=== PATIENT | male | born 1980 | race Caucasian/White ===

== ENCOUNTER 2024-06-11 14:24 | Emergency (ER) | payer OTHER, SELFPAY ==
[2024-06-11 14:28] VITALS: BP 140/92; PULSE 96; RESP 18; TEMP 36.8; O2SAT 98
[2024-06-11 14:34] VITALS: O2SAT 99
--- NOTE | 2024-06-11 14:42 | ED.GENADULT ---
HPI - General Adult General Chief complaint: Allergic Reaction Stated complaint: wasp sting Time Seen by Provider: 06/11/24 14:38 History of Present Illness HPI narrative: Patient is a 44-year-old male who presents ER after a wasp sting to the forehead yesterday. Use an EpiPen. For his forehead denies any known swelling today. He took an Eleni. No difficulty breathing or swelling. Related Data Allergies Allergy/AdvReac Type Severity Reaction Status Date / Time No Known Allergies Allergy Verified 06/11/24 14:32 Review of Systems Constitutional: Constitutional: Reports no additional constitutional complaints Respiratory: Respiratory: Reports no additional respiratory complaints Allergic/Immunologic: Allergic/Immunologic: Reports no additional allergic/immunologic complaints PMFSH Past Medical History Medical History (Updated 06/11/24 @ 14:44 by Beny Irwin MD) Healthy adult male Exam Narrative: GENERAL: Well-appearing, well-nourished, and in no acute distress. HEAD: Normocephalic, atraumatic. EYES: PERRL and EOMI. Periorbital edema without cellulitis. ENT: Mucous membranes moist. EXTREMITIES: Normal range of motion. No edema. SKIN: Warm, dry, no rash. NEURO: Alert and oriented x3. PSYCH: Normal mood and affect. Course Course Emergency Course: Discharge with steroids. Recommend Benadryl at home. Will refill EpiPen. Vital Signs Vital signs: Vital Signs Temperature 98.2 F 06/11/24 14:28 Pulse Rate 96 06/11/24 14:28 Respiratory Rate 18 06/11/24 14:28 Blood Pressure 140/92 H 06/11/24 14:28 Pulse Oximetry 98 06/11/24 14:28 Oxygen Delivery Room Air 06/11/24 14:28 Temperature 98.2 F 06/11/24 14:28 Pulse Rate 96 06/11/24 14:28 Respiratory Rate 18 06/11/24 14:28 Blood Pressure 140/92 H 06/11/24 14:28 Pulse Oximetry 99 06/11/24 14:34 Oxygen Delivery Room Air 06/11/24 14:34 Medical Decision Making Vital Signs Vital Signs: Vital Signs Temperature 98.2 F 06/11/24 14:28 Pulse Rate 96 06/11/24 14:28 Respiratory Rate 18 06/11/24 14:28 Blood Pressure 140/92 H 06/11/24 14:28 Pulse Oximetry 98 06/11/24 14:28 Oxygen Delivery Room Air 06/11/24 14:28 Temperature 98.2 F 06/11/24 14:28 Pulse Rate 96 06/11/24 14:28 Respiratory Rate 18 06/11/24 14:28 Blood Pressure 140/92 H 06/11/24 14:28 Pulse Oximetry 99 06/11/24 14:34 Oxygen Delivery Room Air 06/11/24 14:34 Discharge Plan Discharge Clinical Impression: Allergic reaction to wasp sting Patient Disposition: Home, Self-Care Condition: Stable Instructions: Insect Bite or Sting (ED) Additional Instructions: Return the ER if you cannot breathe, you cannot swallow, you lose consciousness, or have additional concerns. Prescriptions: New epinephrine [EpiPen] 0.3 mg/0.3 mL auto-injector 0.3 mg IM ONCE Qty: 2 0RF Rx Instructions: as a single dose; may repeat once prednisone 50 mg tablet 50 mg PO DAILY Qty: 6 0RF Follow-up/Referrals: PHYSICIAN,[facility] [Primary Care Provider] - Jose Power MD [Physician] - 1 Week
[2024-06-11 15:01] VITALS: BP 141/76; PULSE 86; RESP 18; O2SAT 99
== END 2024-06-11 15:02 | disposition home or self-care (01) ==
LOC: ANHED 14:53
PROVIDERS: Emergency Provider Emergency Medicine; PCP Nurse Practitioner
DX: T63.461A Toxic effect of venom of wasps, accidental (unintentional), initial encounter (principal)
CPT/HCPCS: 99283

== ENCOUNTER 2024-12-26 07:14 | Emergency (ER) | payer OTHER, SELFPAY ==
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
--- OUTSIDE RECORDS SUMMARY | 2024-12-26 07:17 | XMS_ITS | Patient Health Record ---
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 Name Role Phone Shane Apodaca Primary Care Provider Alyssa Christiansen Unavailable [phone] Tyrone Hensley Unavailable [phone] Lisha Smith Unavailable [phone] Tyshawn Ryan Unavailable [phone] Lynsey Iverson Unavailable [phone] Carmen Lopez Unavailable [phone] Allergies No Known Allergies Results Component Value Reference Range Notes 12 Panel Urine Drug Screen Reviewed date:05/26/2024 08:35:36 AM Interpretation: Performing Lab: Notes/Report: THC NEG MANISH NEG MOP (OPI) NEG AMP NEG MET NEG BAR NEG BZO NEG MDMA NEG MTD NEG OXY NEG PCP NEG BUP POS 12 Panel Urine Drug Screen Reviewed date:03/28/2024 08:21:47 AM Interpretation: Performing Lab: Notes/Report: THC NEG MANISH NEG MOP (OPI) NEG AMP NEG MET NEG BAR NEG BZO NEG MDMA NEG MTD NEG OXY NEG PCP NEG BUP POS 12 Panel Urine Drug Screen Reviewed date:12/12/2024 08:20:24 AM Interpretation: Performing Lab: Notes/Report: THC neg MANISH neg MOP (OPI) neg AMP neg MET neg BAR neg BZO neg MDMA neg MTD neg OXY neg PCP neg BUP POS 12 Panel Urine Drug Screen Reviewed date:07/25/2024 08:30:54 AM Interpretation: Performing Lab: Notes/Report: THC neg MANISH neg MOP (OPI) neg AMP neg MET neg BAR neg BZO neg MDMA neg MTD neg OXY neg PCP neg BUP POS HIV Screen *HIV 1, 2 Ab, p24 Ag Reviewed date:01/14/2024 12:21:50 PM Interpretation: Performing Lab: Notes/Report: Hemoglobin A1c* Reviewed date:01/14/2024 12:20:23 PM Interpretation: Performing Lab: Notes/Report: CBC With Differential/Platel et* Reviewed date:01/14/2024 12:21:13 PM Interpretation: Performing Lab: Notes/Report: TSH+Free T4* Reviewed date:01/14/2024 12:21:31 PM Interpretation: Performing Lab: Notes/Report: Lipid Panel* Reviewed date:01/14/2024 12:20:03 PM Interpretation: Performing Lab: Notes/Report: CMP 14 Comprehensive Metabol ic Panel* Reviewed date:01/14/2024 12:20:45 PM Interpretation: Performing Lab: Notes/Report: 12 Panel Urine Drug Screen Reviewed date:11/11/2024 08:35:26 AM Interpretation: Performing Lab: Notes/Report: THC neg MANISH neg MOP (OPI) neg AMP neg MET neg BAR neg BZO neg MDMA neg MTD neg OXY neg PCP neg BUP POS 12 Panel Urine Drug Screen Reviewed date:06/24/2024 08:22:50 AM Interpretation: Performing Lab: Notes/Report: THC neg MANISH neg MOP (OPI) neg AMP neg MET neg BAR neg BZO neg MDMA neg MTD neg OXY neg PCP neg BUP POS 12 Panel Urine Drug Screen Reviewed date:04/27/2024 09:26:59 AM Interpretation: Performing Lab: Notes/Report: THC neg MANISH neg MOP (OPI) neg AMP neg MET neg BAR neg BZO neg MDMA neg MTD neg OXY neg PCP neg BUP POS 12 Panel Urine Drug Screen Reviewed date:01/29/2024 08:33:11 AM Interpretation: Performing Lab: Notes/Report: THC neg MANISH neg MOP (OPI) neg AMP neg MET neg BAR neg BZO neg MDMA neg MTD neg OXY neg PCP neg BUP POS Buprenorphine and Metabolite (Urine test) Reviewed date:2024 11:07:24 AM Interpretation:Normal Performing Lab:[facility], [address], [place], Phone - [phone], Director - PhDAbudu Notes/Report: Clinical Information:[id number] LM Buprenorphine Positive Confirmation p erformed by Mass Spectrometry Buprenorphine Positive Buprenorphine Conf, MS, UR 117 Cutoff=10 ng/m L Norbuprenorphine Positive Norbuprenorphine Conf, MS, UR 217 Cutoff=10 n g/mL 12 Panel Urine Drug Screen Reviewed date:01/01/2024 08:30:22 AM Interpretation: Performing Lab: Notes/Report: THC neg MANISH neg MOP (OPI) neg AMP neg MET neg BAR neg BZO neg MDMA neg MTD neg OXY neg PCP neg BUP POS Buprenorphine and Metabolite (Urine test) Reviewed date:10/24/2024 08:23:51 AM Interpretation: Performing Lab:[facility], [address], [facility], Phone - [phone], Director - PhDAbudu Notes/Report: Clinical Information:[id number] LM Buprenorphine Positive Confirmation p erformed by Mass Spectrometry Buprenorphine Positive Buprenorphine Conf, MS, UR 176 Cutoff=10 ng/m L Norbuprenorphine Positive Norbuprenorphine Conf, MS, UR 410 Cutoff=10 n g/mL 12 Panel Urine Drug Screen Reviewed date:10/17/2024 08:40:58 AM Interpretation: Performing Lab: Notes/Report: THC neg MANISH neg MOP (OPI) neg AMP neg MET neg BAR neg BZO neg MDMA neg MTD neg OXY neg PCP neg BUP POS 12 Panel Urine Drug Screen Reviewed date:08/23/2024 08:47:21 AM Interpretation: Performing Lab: Notes/Report: THC neg MANISH neg MOP (OPI) neg AMP neg MET neg BAR neg BZO neg MDMA neg MTD neg OXY neg PCP neg BUP POS 12 Panel Urine Drug Screen Reviewed date:02/29/2024 08:25:53 AM Interpretation: Performing Lab: Notes/Report: THC neg MANISH neg MOP (OPI) neg AMP neg MET neg BAR neg BZO neg MDMA neg MTD neg OXY neg PCP neg BUP POS Occult Blood, Fecal, IA Reviewed date:02/15/2024 01:15:28 PM Interpretation:Negative Performing Lab:[facility], [address] [facility], Phone - [phone], Director - Neeta Notes/Report: Occult Blood, Fecal, IA Negative Negative Please note The date and/or time of collection was not indicated on the requisition as required by state and federal law. The date of receipt of the specimen was used as the collection date if not supplied. 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 Fax confirmation pending., Lynsey Diaz RN 10/21/2024 02:07:36 PM >fax was successfully sent. Message sent to notify pt of referral and letter mailed., Lynsey Diaz RN 11/10/2024 02:18:41 PM >received message from [facility] that they left messages with Hellen on 10/24 and on 11/03 to schedule an appointment with no response., Lynsey Diaz RN 11/10/2024 02:20:25 PM > Text message sent asking pt to contact our office regarding an outstanding referral., Lynsey Diaz RN 11/16/2024 09:49:34 AM >Letter mailed asking pt to call regarding this referral. Clinical Notes [facility], [address], [place] [address], Referral Priority Routine Medications Medication SIG (Take, Route, Frequency, Duration) Notes Start Date End Date Status Citalopram Hydrobromide 40 mg 1 tablet once a day for 90 days Client to rock picker on Thursday when has MAT appt. Active hydrOXYzine HCl 10 MG 1 - 2 tablets as needed for anxiety Orally Twice a day for 90 days Client to rock picker on Thursday when has MAT appt. 11/09/2024 Active Ondansetron HCl 4 mg 1 tablet daily for 30 days As needed for nausea Stopping Strattera due to continued nausea and replacing with viloxazine to see if better tolerated Active buPROPion HCl ER (XL) 150 MG 1 tablet in the morning (please take with 300 mg tablet) Orally Once a day for 90 days Client to rock picker on Thursday when has MAT appt. 06/06/2024 Active buPROPion HCl ER (XL) 300 MG 1 tablet in the morning (please take with 150 mg tablet) Orally Once a day for 90 days Client to rock picker on Thursday when has MAT appt. 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 Social History Tobacco Use: Social History Observation Description Date Details (start date - stop date) Current Smoker NA - NA Sex Assigned At : Social History Observation Description Sex Assigned At Male Alcohol Screen (Audit-C) Question Answer Notes Did you have a drink containing alcohol in the p ast year? No PRAPARE Question Answer Notes Date Completed/Updated: 07/25/2024 What is your current housing situation? I have h ousing Are you worried about losing your housing? No What is the highest level of school that you have finished? 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 Check all that apply I do not have problems meeting my needs Has lack of transportation k ept you from medical appointments, meetings, work or from getting things needed for daily living? No How often do you see or talk to people that you care about and feel close to? (For example: talking to friends on the phone, visiting friends or family, going to [employer]aritan or club meetings) More than 5 times a week How stressed are you? Stress is when someone feels tense, nervous, anxious, or can\t sleep at night because their mind is troubled A little bit In the past year have you sp ent more than 2 nights in a row in a senior living, snf, assisted center, or juvenile correctional facility? No Are you a refugee? No What country are you from? [place] Do you feel physically and e motionally safe where you currently live? Yes In the past year, have you b een afraid of your partner or ex-partner? No PRAPARE Score: 4 Tobacco Control (Standard) Question Answer Notes Tobacco use: Current smoker How often do you smoke cigarettes? Every day How many cigarettes a day do you smoke? 6-10 Problems Problem Type SNOMED Code ICD Code Onset Dates Problem Status W/U Status Risk Notes Problem Tobacco user (233444419) Nicotine dependence, unspecified, uncomplicated (F17.200) Active confirmed Problem Depression (745394223) Depression (F32.9) Active confirmed Problem 92388545 Anxiety (F41.9) Active confirmed Problem Attention deficit hyperactivity disorder (126986975) ADHD (attention deficit hyperactivity disorder) (F90.9) Active confirmed Problem Psychoactive substance dependence (8364744) Chemical dependency (F19.20) Active confirmed Problem 06170277 Neck pain (M54.2) Active confirmed Problem Overweight (385303190) Overweight (BMI 25.0-29.9) (E66.3) Active confirmed Problem 523754351 Chronic hepatitis C without hepatic coma (B18.2) 02/20/20 Active confirmed Problem Tobacco use (382157662) Tobacco use disorder (F17.200) Active confirmed Problem Mental disorder caused by drug (939100777) Opioid use disorder (F11.99) Active confirmed Problem [id number] History of intravenous drug abuse (F19.11) Active confirmed Vital Signs Heart Rate 79 /min 12/12/2024 Temperature 98.3 degrees Fahrenheit 11/11/2024 Respiratory Rate 16 /min 12/12/2024 Blood pressure diastolic 82 mm Hg 12/12/2024 Oximetry 98 % 12/12/2024 Height 69 in 12/12/2024 Blood pressure systolic 122 mm Hg 12/12/2024 Weight 182.2 lbs 12/12/2024 BMI 26.9 kg/m2 12/12/2024 Encounters Encounter Location Date Provider Diagnosis [facility] [place] [address] [place] [address] 01/01/2024 Shane Apodaca Opioid use disorder F11.[address] [place] [address] [address] 01/12/2024 Tyrone Hensley Encounter for screening for malignant neoplasm of colon Z12.11 and Contact with and (suspected) exposure to other communicable diseases Z20.[address] [address] 01/26/2024 Shane Apodaca [facility] [address] [place] [address] [place] [address] 05/10/2024 Tyshawn Ryan [address] [address] 08/23/2024 Tyrone Hensley Encounter for screening for malignant neoplasm of colon Z12.11 and Contact with and (suspected) exposure to other communicable diseases Z20.[address] [address] 10/20/2024 Tyrone Hensley Contact with and (suspected) exposure to other communicable diseases Z20.[address] [address] 11/07/2024 Tyshawn Ryan [address] [address] 01/13/2024 Shane Apodaca Chronic hepatitis C without hepatic coma B18.2 ; Encounter for screening for malignant neoplasm of colon Z12.11 ; Contact with and (suspected) exposure to other communicable diseases Z20.89 ; Screening for metabolic disorder Z13.228 ; Screening for deficiency anemia Z13.0 ; Excessive sweating R61 and Lipid screening Z13.[address] [address] 07/25/2024 Lisha Sanftleben [address] [address] 01/01/2024 Lisha Sanftlen [address] [address] 02/29/2024 Lisha Sanftleben [address] [address] 03/28/2024 [facility] [address] [address] 04/27/[address] [address] 05/26/[address] [place] [address] 06/24/[address] [place] [address] 01/12/2024 Shane Apodaca Excessive sweating R61 ; Screening for deficiency anemia Z13.0 ; Screening for metabolic disorder Z13.228 ; Lipid screening Z13.220 ; History of hepatitis C Z86.19 ; Chronic hepatitis C without hepatic coma B18.2 ; Overweight (BMI 25.0-29.9) E66.3 ; Nutritional counseling Z71.3 and Tobacco use disorder F17.[address] [address] 10/20/2024 Shane Apodaca Neck pain M54.2 ; Overweight (BMI 25.0-29.9) E66.3 ; Nutritional counseling Z71.3 and Nicotine dependence, unspecified, uncomplicated F17.[address] [address] 11/09/2024 Tyshawn Ryan ADHD (attention deficit hyperactivity disorder) F90.9 ; Anxiety F41.9 and Depression F32.[address] [address] 08/02/2024 Tyshawn Ryan ADHD (attention deficit hyperactivity disorder) F90.9 ; Anxiety F41.9 and Depression F32.[address] [address] 03/08/2024 Tyshawn Ryan ADHD (attention deficit hyperactivity disorder) F90.9 ; Anxiety F41.9 and Depression F32.[address] [facility] [address] 01/11/2024 Tyshawn Ryan ADHD (attention deficit hyperactivity disorder) F90.9 and Anxiety F41.[address] [address] 06/06/2024 Tyshawn Ryan ADHD (attention deficit hyperactivity disorder) F90.9 ; Anxiety F41.9 and Depression F32.[address] [address] 05/10/2024 Tyshawn Ryan Anxiety F41.9 ; ADHD (attention deficit hyperactivity disorder) F90.9 and Depression F32.[address] [address] 05/26/2024 Carmen Szlufik Opioid use disorder F11.99 ; Nicotine dependence, unspecified, uncomplicated F17.200 ; Overweight (BMI 25.0-29.9) E66.3 and Nutritional counseling Z71.[address] [address] 04/27/2024 Carmen Szlufik Opioid use disorder F11.99 ; Nicotine dependence, unspecified, uncomplicated F17.200 ; Overweight (BMI 25.0-29.9) E66.3 and Nutritional counseling Z71.[address] [address] 06/24/2024 Jenia Heavens Opioid use disorder F11.99 ; Overweight (BMI 25.0-29.9) E66.3 and Tobacco use disorder F17.[address] [address] 07/25/2024 Carmen Szlufik Opioid use disorder F11.99 ; Nicotine dependence, unspecified, uncomplicated F17.200 ; Overweight (BMI 25.0-29.9) E66.3 and Nutritional counseling Z71.[address] [address] 01/01/2024 Jenia Heavens Opioid use disorder F11.99 ; Tobacco use disorder F17.200 and Overweight (BMI 25.0-29.9) E66.[address] [address] 03/28/2024 Carmen Szlufik Opioid use disorder F11.99 ; Nicotine dependence, unspecified, uncomplicated F17.200 ; Overweight (BMI 25.0-29.9) E66.3 and Nutritional counseling Z71.[address] [address] 01/29/2024 Shane Apodaca Opioid use disorder F11.99 ; Overweight (BMI 25.0-29.9) E66.3 ; Nutritional counseling Z71.3 and Nicotine dependence, unspecified, uncomplicated F17.[address] [address] 02/29/2024 Lynsey Iverson Opioid use disorder F11.99 and Nicotine dependence, unspecified, uncomplicated F17.[address] [address] 08/23/2024 Jenia Heavens Opioid use disorder F11.99 ; Overweight (BMI 25.0-29.9) E66.3 and Tobacco use disorder F17.[address] [address] 09/16/2024 Jenia Heavens Opioid use disorder F11.99 ; Overweight (BMI 25.0-29.9) E66.3 and Tobacco use disorder F17.[address] [address] 10/17/2024 Carmen Szlufik Opioid use disorder F11.99 ; Nicotine dependence, unspecified, uncomplicated F17.200 ; Overweight (BMI 25.0-29.9) E66.3 and Nutritional counseling Z71.[address] [address] 11/11/2024 Jenia Heavens Opioid use disorder F11.99 ; Overweight (BMI 25.0-29.9) E66.3 and Tobacco use disorder F17.[address] [address] 12/12/2024 Carmen Jessica Opioid use disorder F11.99 and Encounter for immunization Z23 Assessments Encounter Date Diagnosis (ICD Code) Assessment Notes Treatment Notes Treatment Clinical Notes Section Notes 12/12/2024 Encounter for immunization (ICD-10 - Z23) Ordered per standing orders for administering influenza vaccine to adults. 12/12/2024 Opioid use disorder (ICD-10 - F11.99) 11/09/2024 ADHD (attention deficit hyperactivity disorder) (ICD-10 - F90.9) 10/20/2024 Neck pain (ICD-10 - M54.2) 10/20/2024 Overweight (BMI 25.0-29.9) (ICD-10 - E66.3) 10/17/2024 Nicotine dependence, unspecified, uncomplicated (ICD-10 - F17.200) 10/17/2024 Opioid use disorder (ICD-10 - F11.99) 08/23/2024 Encounter for screening for malignant neoplasm of colon (ICD-10 - Z12.11) 08/23/2024 Contact with and (suspected) exposure to other communicable diseases (ICD-10 - Z20.89) 07/25/2024 Nicotine dependence, unspecified, uncomplicated (ICD-10 - F17.200) 07/25/2024 Opioid use disorder (ICD-10 - F11.99) 05/26/2024 Nicotine dependence, unspecified, uncomplicated (ICD-10 - F17.200) 05/26/2024 Opioid use disorder (ICD-10 - F11.99) 03/28/2024 Nicotine dependence, unspecified, uncomplicated (ICD-10 - F17.200) 03/28/2024 Opioid use disorder (ICD-10 - F11.99) 03/08/2024 ADHD (attention deficit hyperactivity disorder) (ICD-10 - F90.9) 01/13/2024 Chronic hepatitis C without hepatic coma (ICD-10 - B18.2) 01/12/2024 Encounter for screening for malignant neoplasm of colon (ICD-10 - Z12.11) 01/12/2024 Contact with and (suspected) exposure to other communicable diseases (ICD-10 - Z20.89) 01/12/2024 Excessive sweating (ICD-10 - R61) Check labs. Consider hyperhidrosis, derm consult. 01/01/2024 Tobacco use disorder (ICD-10 - F17.200) 01/01/2024 Opioid use disorder (ICD-10 - F11.99) 01/12/2024 Screening for deficiency anemia (ICD-10 - Z13.0) 01/01/2024 Opioid use disorder (ICD-10 - F11.99) 09/16/2024 Overweight (BMI 25.0-29.9) (ICD-10 - E66.3) 09/16/2024 Opioid use disorder (ICD-10 - F11.99) 08/23/2024 Overweight (BMI 25.0-29.9) (ICD-10 - E66.3) 08/23/2024 Opioid use disorder (ICD-10 - F11.99) 04/27/2024 Nicotine dependence, unspecified, uncomplicated (ICD-10 - F17.200) 04/27/2024 Opioid use disorder (ICD-10 - F11.99) 06/24/2024 Overweight (BMI 25.0-29.9) (ICD-10 - E66.3) 06/24/2024 Opioid use disorder (ICD-10 - F11.99) 11/11/2024 Overweight (BMI 25.0-29.9) (ICD-10 - E66.3) 11/11/2024 Opioid use disorder (ICD-10 - F11.99) 10/20/2024 Contact with and (suspected) exposure to other communicable diseases (ICD-10 - Z20.89) Patient Educated with: HIV testing Care Instructions.pdf (HIV testing Care Instructions.pdf) 08/02/2024 ADHD (attention deficit hyperactivity disorder) (ICD-10 - F90.9) Client doing well, no treatment plan changes needed. 06/06/2024 ADHD (attention deficit hyperactivity disorder) (ICD-10 - F90.9) Client doing well, did not appreciate noticable change with increase in bupropion and would like to trial higher dose. BP WNL at last clinic visit. Will increase to max dose of 450 mg. 02/29/2024 Opioid use disorder (ICD-10 - F11.99) 01/29/2024 Overweight (BMI 25.0-29.9) (ICD-10 - E66.3) 01/29/2024 Opioid use disorder (ICD-10 - F11.99) 05/10/2024 Anxiety (ICD-10 - F41.9) Client with less side effects on bupropion than Qelbree (no side effects actually), doing well. Requests high dose as feels could be more beneficial at higher dose for his ADHD symptoms. No other treatment plan changes needed. 05/10/2024 ADHD (attention deficit hyperactivity disorder) (ICD-10 - F90.9) Client with less side effects on bupropion than Qelbree (no side effects actually), doing well. Requests high dose as feels could be more beneficial at higher dose for his ADHD symptoms. No other treatment plan changes needed. 01/11/2024 Anxiety (ICD-10 - F41.9) Client agreeable to switch from Strattera to viloxazine to see if helpful for c/o continued nausea on Strattera. No other changes needed as client doing very well on treatment plan. 01/11/2024 ADHD (attention deficit hyperactivity disorder) (ICD-10 - F90.9) Client agreeable to switch from Strattera to viloxazine to see if helpful for c/o continued nausea on Strattera. No other changes needed as client doing very well on treatment plan. 05/10/2024 Depression (ICD-10 - F32.9) Client with less side effects on bupropion than Qelbree (no side effects actually), doing well. Requests high dose as feels could be more beneficial at higher dose for his ADHD symptoms. No other treatment plan changes needed. 06/06/2024 Anxiety (ICD-10 - F41.9) Client doing well, did not appreciate noticable change with increase in bupropion and would like to trial higher dose. BP WNL at last clinic visit. Will increase to max dose of 450 mg. 01/29/2024 Nutritional counseling (ICD-10 - Z71.3) 02/29/2024 Nicotine dependence, unspecified, uncomplicated (ICD-10 - F17.200) 08/02/2024 Anxiety (ICD-10 - F41.9) Client doing well, no treatment plan changes needed. 11/11/2024 Tobacco use disorder (ICD-10 - F17.200) 06/24/2024 Tobacco use disorder (ICD-10 - F17.200) 04/27/2024 Overweight (BMI 25.0-29.9) (ICD-10 - E66.3) 08/23/2024 Tobacco use disorder (ICD-10 - F17.200) 09/16/2024 Tobacco use disorder (ICD-10 - F17.200) 01/01/2024 Overweight (BMI 25.0-29.9) (ICD-10 - E66.3) 01/12/2024 Screening for metabolic disorder (ICD-10 - Z13.228) 01/13/2024 Encounter for screening for malignant neoplasm of colon (ICD-10 - Z12.11) 11/09/2024 Anxiety (ICD-10 - F41.9) 03/08/2024 Anxiety (ICD-10 - F41.9) 03/28/2024 Overweight (BMI 25.0-29.9) (ICD-10 - E66.3) 05/26/2024 Overweight (BMI 25.0-29.9) (ICD-10 - E66.3) 07/25/2024 Overweight (BMI 25.0-29.9) (ICD-10 - E66.3) 10/17/2024 Overweight (BMI 25.0-29.9) (ICD-10 - E66.3) 10/20/2024 Nutritional counseling (ICD-10 - Z71.3) 10/17/2024 Nutritional counseling (ICD-10 - Z71.3) 10/20/2024 Nicotine dependence, unspecified, uncomplicated (ICD-10 - F17.200) 11/09/2024 Depression (ICD-10 - F32.9) 07/25/2024 Nutritional counseling (ICD-10 - Z71.3) 05/26/2024 Nutritional counseling (ICD-10 - Z71.3) 03/28/2024 Nutritional counseling (ICD-10 - Z71.3) 03/08/2024 Depression (ICD-10 - F32.9) 01/13/2024 Contact with and (suspected) exposure to other communicable diseases (ICD-10 - Z20.89) 01/12/2024 Lipid screening (ICD-10 - Z13.220) 04/27/2024 Nutritional counseling (ICD-10 - Z71.3) 08/02/2024 Depression (ICD-10 - F32.9) Client doing well, no treatment plan changes needed. 06/06/2024 Depression (ICD-10 - F32.9) Client doing well, did not appreciate noticable change with increase in bupropion and would like to trial higher dose. BP WNL at last clinic visit. Will increase to max dose of 450 mg. 01/29/2024 Nicotine dependence, unspecified, uncomplicated (ICD-10 - F17.200) 01/12/2024 History of hepatitis C (ICD-10 - Z86.19) 01/13/2024 Screening for metabolic disorder (ICD-10 - Z13.228) 01/13/2024 Screening for deficiency anemia (ICD-10 - Z13.0) 01/12/2024 Chronic hepatitis C without hepatic coma (ICD-10 - B18.2) 01/12/2024 Overweight (BMI 25.0-29.9) (ICD-10 - E66.3) 01/13/2024 Excessive sweating (ICD-10 - R61) 01/13/2024 Lipid screening (ICD-10 - Z13.220) 01/12/2024 Nutritional counseling (ICD-10 - Z71.3) 01/12/2024 Tobacco use disorder (ICD-10 - F17.200) 01/01/2024 Other Client agrees to take medication as prescribed. Discussed medication side effects, adverse effects, risks, benefits, as well as interactions. Encouraged non-use of opioids. Has naloxone. Recommended participation in recovery groups/counseling services. Agrees to contact office with questions or concerns. 01/01/2024 Other Provided case management services to address social determinants of health needs and reduce barriers to health care services. Provided case management services to address social determinants of health needs and reduce barriers to health care services. 01/11/2024 Other Discussed sleep hygiene and caffeine intake [...] number to the 24-hour crisis line at [facility]. Questions addressed. Client verbalized understanding of all information and is agreeable to treatment plan. Client agreeable to switch from Strattera to viloxazine to see if helpful for c/o continued nausea on Strattera. No other changes needed as client doing very well on treatment plan. 01/29/2024 Other Potential side effects of buprenorphine discussed, as well as taking buprenorphine as prescribed. Dangers of using other controlled substances (prescribed or illegal/including benzodiazepines) with buprenorphine discussed. Patient understands taking other narcotics with buprenorphine could lead to respiratory distress and even . Patient understands that ALL treating providers/physici ans should be informed of buprenorphine use as part of a Medication Assisted Treatment program 02/29/2024 Other Patient agrees to take medication as prescribed. Discussed medication side effects, adverse effects, risks, benefits, as well as interactions. Encouraged non-use of opioids. Encouraged participation in recovery groups. Patient may contact office with questions or concerns. Patient is agreeable to above treatment plan and or changes and verbalized understanding. Continue all medication as prescribed. Provided informed consent with understanding of side effects, adverse effects, risks and benefits as well as alternative treatments as previously discussed with the above recommended medication and other aspects of the treatment programs. Discussed off label uses of medication. Agrees to return sooner if symptoms worsen Client verbalized understanding of information and is agreeable to plan of care. Questions addressed. Education given to patient-Kassandra davison that discontinuing buprenorphine increased the risk of overdose upon return to illicit opioid use. Know that the use of alcohol or benzodiazepines with buprenorphine increases the risk of overdose and . Understand the importance of informing providers if they become or plan to become . Tell the provider if they are having a procedure that may require pain medications. Education gave about safe and locked storage of medications to avoid theft or inadvertent use, especially by children. Encouraged locking devices and avoiding storage in parts of the home frequented by visitors. 02/29/2024 Other Provided case management services to address social determinants of health needs and reduce barriers to health care services. 03/08/2024 Other Discussed sleep hygiene and caffeine intake [...] number to the 24-hour crisis line at [facility]. Questions addressed. Client verbalized understanding of all information and is agreeable to treatment plan. 03/28/2024 Other Client agrees to take medication as prescribed. Discussed medication side effects, adverse effects, risks, benefits, as well as interactions. Encouraged non-use of opioids and other illicit substances. Has naloxone. Understand that discontinuing buprenorphine increases the risk of overdose upon return to illicit opioid use. Know that that use of alcohol or benzodiazepines with buprenorphine increases the risk of overdose and . Education provided about safe storage of medications. Encourage participation in recovery groups/counseling services. Agrees to contact office with questions or concerns. 03/28/2024 Other Provided case management services to address social determinants of health needs and reduce barriers to health care services. 04/27/2024 Other Client agrees to take medication as prescribed. Discussed medication side effects, adverse effects, risks, benefits, as well as interactions. Encouraged non-use of opioids and other illicit substances. Has naloxone. Understand that discontinuing buprenorphine increases the risk of overdose upon return to illicit opioid use. Know that that use of alcohol or benzodiazepines with buprenorphine increases the risk of overdose and . Education provided about safe storage of medications. Encourage participation in recovery groups/counseling services. Contact office with questions or concerns. 04/27/2024 Other Provided case management services to address social determinants of health needs and reduce barriers to health care services. 05/10/2024 Other Discussed sleep hygiene and caffeine intake [...] number to the 24-hour crisis line at [facility]. Questions addressed. Client verbalized understanding of all information and is agreeable to treatment plan. Client with less side effects on bupropion than Mike (no side effects actually), doing well. Requests high dose as feels could be more beneficial at higher dose for his ADHD symptoms. No other treatment plan changes needed. 05/26/2024 Other Client agrees to take medication as prescribed. Discussed medication side effects, adverse effects, risks, benefits, as well as interactions. Encouraged non-use of opioids and other illicit substances. Has naloxone. Understand that discontinuing buprenorphine increases the risk of overdose upon return to illicit opioid use. Know that that use of alcohol or benzodiazepines with buprenorphine increases the risk of overdose and . Education provided about safe storage of medications. Encourage participation in recovery groups/counseling services. Contact office with questions or concerns. 05/26/2024 Other Provided case management services to address social determinants of health needs and reduce barriers to health care services. 06/06/2024 Other Discussed sleep hygiene and caffeine intake [...] number to the 24-hour crisis line at [facility]. Questions addressed. Client verbalized understanding of all information and is agreeable to treatment plan. Client doing well, did not appreciate noticable change with increase in bupropion and would like to trial higher dose. BP WNL at last clinic visit. Will increase to max dose of 450 mg. 06/24/2024 Other Client agrees to take medication as prescribed. Discussed medication side effects, adverse effects, risks, benefits, as well as interactions. Encouraged non-use of opioids. Has naloxone. Recommended participation in recovery groups/counseling services. May contact office with questions or concerns. 06/24/2024 Other Provided case management services to address social determinants of health needs and reduce barriers to health care services. 07/25/2024 Other Provided case management services to address social determinants of health needs and reduce barriers to health care services. Client agrees to take medication as prescribed. Discussed medication side effects, adverse effects, risks, benefits, as well as interactions. Encouraged non-use of opioids and other illicit substances. Has naloxone. Understand that discontinuing buprenorphine increases the risk of overdose upon return to illicit opioid use. Know that that use of alcohol or benzodiazepines with buprenorphine increases the risk of overdose and . Education provided about safe storage of medications. Encourage participation in recovery groups/counseling services. Patient understands that all treating providers/physici ans should be informed of buprenorphine use as part of a Medication Assisted Recovery program. Contact office with questions or concerns. 07/25/2024 Other Provided case management services to address social determinants of health needs and reduce barriers to health care services. 08/02/2024 Other Discussed sleep hygiene and caffeine intake [...] number to the 24-hour crisis line at [facility]. Questions addressed. Client verbalized understanding of all information and is agreeable to treatment plan. Client doing well, no treatment plan changes needed. 08/23/2024 Other Client agrees to take medication as prescribed. Discussed medication side effects, adverse effects, risks, benefits, as well as interactions. Encouraged non-use of opioids. Has naloxone. Recommended participation in recovery groups/counseling services. May contact office with questions or concerns. 09/16/2024 Other Patient agrees to take medication as prescribed. Discussed medication side effects, adverse effects, risks, benefits, as well as interactions. Encouraged non-use of opioids. Has naloxone. Recommended participation in recovery groups and/or counseling services. May contact office with questions or concerns. 10/17/2024 Other Client agrees to take medication as prescribed. Discussed medication side effects, adverse effects, risks, benefits, as well as interactions. Encouraged non-use of opioids and other illicit substances. Has naloxone. Discontinuing buprenorphine increases the risk of overdose upon return to illicit opioid use. Use of alcohol or benzodiazepines with buprenorphine increases the risk of overdose and . Education provided about safe storage of medications. Encouraged participation in recovery groups/counseling services. Contact office with questions or concerns. 11/09/2024 Other Discussed sleep hygiene and caffeine [...] number to the 24-hour crisis line at [facility]. Questions addressed. Client verbalized understanding of all information and is agreeable to treatment plan. 11/11/2024 Other Discussed medication side effects, adverse effects, risks, benefits, as well as interactions. Encouraged non-use of opioids. Has naloxone. Recommended participation in recovery groups/counseling services. May contact office with questions or concerns 12/12/2024 Other Patient agrees to take medication as prescribed. Discussed medication side effects, adverse effects, risks, benefits, as well as interactions. Encouraged non-use of opioids and other illicit substances. Has naloxone. Discontinuing buprenorphine increases the risk of overdose upon return to illicit opioid use. Use of alcohol or benzodiazepines with buprenorphine increases the risk of overdose and . Education provided about safe storage of medications. Encouraged participation in recovery groups/counseling services. Contact office with questions or concerns. Plan Of Treatment No Information Insurance Providers Payer Name Payer Address Payer Phone Subscriber Number Group Number Insured Name Patient Relationship to Insured Coverage Start Date Coverage End Date [employer] [facility] [employer] Claims Department [address] [place] [address] [phone] [id number] Hellen Mayen Self - patient is the insured 2 [employer] Claims Department [address] [place] [address] [phone] [id number] Hellen Mayen Self - patient is the insured 3 Medical (General) History Medical History History ICD Code OUD Hep C Anxiety Surgical History Surgery Date(Month/Year) Right hand repair Hospitalization History Reason Date(Month/Year)
--- OUTSIDE RECORDS SUMMARY | 2024-12-26 07:17 | XMS_ITS ---
Author Organization [facility] Address [address] [place] [address] Care Team Providers Care Rehabilitation Case Coordinator Name Role Phone Apodaca, Shane Primary Care Provider Alyssa Christiansen Unavailable [phone] Allergies No Known Allergies REASON FOR VISIT mat clinic Medications Medication SIG (Take, Route, Frequency, Duration) Notes Start Date End Date Status hydrOXYzine HCl 10 MG 1 - 2 tablets as needed for anxiety Orally Twice a day for 90 days Client to continuous pickling line pickler on Thursday when has MAT appt. 11/09/2024 Active Buprenorphine HCl-Naloxone HCl 8-2 MG 1 tablet under the tongue and allow to dissolve Sublingual Twice a day 11/11/2024 Active buPROPion HCl ER (XL) 300 MG 1 tablet in the morning (please take with 150 mg tablet) Orally Once a day for 90 days Client to continuous pickling line pickler on Thursday when has MAT appt. Active Citalopram Hydrobromide 40 mg 1 tablet once a day for 90 days Client to continuous pickling line pickler on Thursday when has MAT appt. Active buPROPion HCl ER (XL) 150 MG 1 tablet in the morning (please take with 300 mg tablet) Orally Once a day for 90 days Client to continuous pickling line pickler on Thursday when has MAT appt. 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 Stress is when someone feels tense, nervous, anxious, or can\t sleep at night because their mind is troubled A little bit In the past year have you sp ent more than 2 nights in a row in a long-term, mcc, fci center, or juvenile correctional facility? No Are you a refugee? No What country are you from? [place] Do you feel physically and e motionally safe where you currently live? Yes In the past year, have you b een afraid of your partner or ex-partner? No PRAPARE Score: 4 Tobacco Control (Standard) Question Answer Notes Tobacco use: Current smoker Vital Signs Oximetry 97 % 11/11/2024 Temperature 98.3 degrees Fahrenheit 11/11/20 24 Respiratory Rate 16 /min 11/11/2024 Heart Rate 70 /min 11/11/2024 Blood pressure systolic 118 mm Hg 11/11/20 24 Blood pressure diastolic 68 mm Hg 024 BMI 27.11 kg/m2 11/11/2024 Height 69 in 11/11/2024 Weight 183.6 lbs 11/11/2024 Encounters Encounter Location Date Provider Diagnosis [address] [place] [address] 11/11/2024 Alyssa Christiansen Opioid use disorder F11.99 ; Overweight (BMI 25.0-29.9) E66.3 and Tobacco use disorder F17.200 Assessments Encounter Date Diagnosis (ICD Code) Assessment Notes Treatment Notes Treatment Clinical Notes Section Notes 11/11/2024 Opioid use disorder (ICD-10 - F11.99) 11/11/2024 Overweight (BMI 25.0-29.9) (ICD-10 - E66.3) 11/11/2024 Tobacco use disorder (ICD-10 - F17.200) 11/11/2024 Other Discussed medication side effects, adverse effects, risks, benefits, as well as interactions. Encouraged non-use of opioids. Has naloxone. Recommended participation in recovery groups/counseling services. May contact office with questions or concerns Plan Of Treatment Medication Medication Name Sig Start Date Stop Date Notes Buprenorphine HCl-Naloxone H Cl 8-2 MG 1 tablet under the tongue and allow to dissolve Sublingual Twice a day 11/11/2024 Treatment Notes Assessment Notes Other Discussed medication side effects, adverse effects, risks, benefits, as well as interactions. Encouraged non-use of opioids. Has naloxone. Recommended participation in recovery groups/counseling services. 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[employer] Subjective: * Chief Complaints: * ???Mat clinic * HPI: ???Interim History:?Emergency room visit?No.?Was hospitalized?No.?Depression Screening:?PHQ-9?Little interest or pleasure in doing things?Not at all ?Feeling down, depressed, or hopeless?Not at all ?Trouble falling or staying asleep, or sleeping too much?Not at all ?Feeling tired or having little energy?Not at all ?Poor appetite or overeating?Not at all ?Feeling bad about yourself or that you are a failure, or have let yourself or your family down?Not at all ?Trouble concentrating on things, such as reading the newspaper or watching television?Not at all ?Moving or speaking so slowly that other people could have noticed; or the opposite, being so fidgety or restless that you have been moving around a lot more than usual?Not at all ?Thoughts that you would be better off or of hurting yourself in some way?Not at all ?Total Score?0 ???CSSRS Interpretation and Follow Up Plan:?CSSRS Interpretation and Follow Up Plan. ?CSSRS Interpretation and Follow Up Plan?CSSRS Screen documented using SF?Yes ?Moderate or High risk requires selection of a follow up plan?CSSRS No/Low: intervention not needed at this time ???Screening:?[place] Suicide Severity Rating Scale (LF)?Do you want to initiate with?Screener form ?1. Wish to be : Have you wished you were or wished you could go to sleep and not wake up??No ?2. Suicidal Thoughts: Have you actually had any thoughts of killing yourself??No ?6. Suicide Behaviour: Have you ever done anything,started to do anything, or prepared to end your life??No ?Interpretation:?Low Risk ???MAR follow-up:? Appointment via Zoom. Hellen reports doing well, taking buprenorphine as prescribed. States he continues to experience using dreams, however, no cravings or setbacks. ?Medication Monitoring and Risk Mitigation?Up-to-date on ASAM recommended lab testing??No ?Prescribed a buprenorphine product??Yes ?Has patient had a buprenorphine and metabolite lab ordered/collected??Yes (see notes for date of last metabolite testing) ?Date of last buprenorphine and metabolite?10/17/2024 ?Prescription Drug Monitoring Program Review?Yes. No concerns at this time. ?Plan to address any concerns identified:?No concerns identified. Will continue treatment plan as is. ?Cravings, Setbacks, Substance use, and Stressors?Cravings since last visit:?No. Patient denies cravings since last visit. ?Setbacks since last visit??No, patient denies setbacks since last visit. ?Misuse of substances since last visit:?No, patient denies. ?Stressors?No, patient denies stressors at this time. ?Withdrawal and Intoxication Symptoms?Intoxication Symptoms:?No signs of intoxication are present during visit. ?Withdrawal Symptoms:?No withdrawal signs are present during visit. ?Mental Health, Support System, and Social Determinants?Mental Health Status?Stable. ?Support Systems Include:?Personal support system (see notes). ?Court System Involvement??No ?Housing Stability:?Stable and safe housing. 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 ?Referrals needed:?No referrals needed at this time. ?Recommended Wellness and Prevention Follow-up?Recommended Wellness and Prevention reviewed:?Yes. No additional orders/actions needed at this time. ?Other concerns:?Other Concerns??No. ?Narcan need?No. Patient already has Narcan. ???Flu vaccine:?Flu vaccine offered?Flu Vaccine Declined?. ???Preventative Health and Wellness follow-up:?Action Plans for Clinical Quality Measures:?Colorectal Cancer Screening:?Discussed need for colorectal cancer screening. Patient declined. * ROS:?Basic ROS:?Denies?Chills.?Denies?Weight loss or gain.?Denies?Sweats.?Denies?Constipation.?Insomnia?Denies.? * Medical History:? * Surgical History:?Right hand repair * Hospitalization/Major Diagno stic Procedure:?Denies Past Hospitalization * Family History:?Father: amilcar e, Healthy.?Mother: alive, Healthy.?1 sister(s) - healthy. 1 daughter(s) - healthy. .? * Social History:?Primary Social History:?Living Arrangement?Is this a supportive environment??Yes ?Living Arrangement:?Independent Living ?Alcohol Use?Alcohol Use Frequency:?Never ?Illicit Substance Usage?Illicit Substance Usage:?Yes ?Interested in quitting:?Yes ?Substance Used:?Methamphetamine,Prescription Drugs Clean for 10 mo. 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 Check all that apply?I do not have problems meeting my needs ?Has lack of transportation kept you from medical appointments, meetings, work or from getting things needed for daily living??No ?How often do you see or talk to people that you care about and feel close to? (For example: talking to friends on the phone, visiting friends or family, going to judaism or club meetings)?More than 5 times a week ?How stressed are you? Stress is when someone feels tense, nervous, anxious, or can\t sleep at night because their mind is troubled?A little bit ?In the past year have you spent more than 2 nights in a row in a long-term, mcc, fci center, or juvenile correctional facility??No ?Are you a refugee??No ?What country are you from??[place] ?Do you feel physically and emotionally safe where you currently live??Yes ?In the past year, have you been afraid of your partner or ex- partner??No ?PRAPARE Score:?4 ???Tobacco Use:?Tobacco Control (Standard)?Tobacco use:?Current smoker ???Drugs/Alcohol:?Drugs?Have you used drugs other than those for medical reasons in the past 12 months??No ?Alcohol Screen (Audit-C)?Did you have a drink containing alcohol in the past year??No ???Miscellaneous:?Domestic violence: No. ?Method of learning?Preferred method of learning:?Reading,Discussion * Medications:?TakingBuprenorp ramona HCl-Naloxone HCl 8-2 MG Tablet Sublingual 1 tablet under the tongue and allow to dissolve Sublingual Twice a day Ondansetron HCl 4 mg Tablet 1 tablet daily As needed for nausea, Notes to Pharmacist: Stopping Strattera due to continued nausea and replacing with viloxazine to see if better toleratedbuPROPion HCl ER (XL) 150 MG Tablet Extended Release 24 Hour 1 tablet in the morning (please take with 300 mg tablet) Orally Once a day , Notes to Pharmacist: Client to continuous pickling line pickler on Thursday when has MAT appt.buPROPion HCl ER (XL) 300 MG Tablet Extended Release 24 Hour 1 tablet in the morning (please take with 150 mg tablet) Orally Once a day , Notes to Pharmacist: Client to continuous pickling line pickler on Thursday when has MAT appt.Citalopram Hydrobromide 40 mg Tablet 1 tablet once a day , Notes to Pharmacist: Client to continuous pickling line pickler on Thursday when has MAT appt.hydrOXYzine HCl 10 MG Tablet 1 - 2 tablets as needed for anxiety Orally Twice a day , Notes to Pharmacist: Client to continuous pickling line pickler on Thursday when has MAT appt.Medication List reviewed and reconciled with the patientTaking Buprenorphine HCl-Naloxone HCl 8-2 MG Tablet Sublingual 1 tablet under the tongue and allow to dissolve Sublingual Twice a day Taking Ondansetron HCl 4 mg Tablet 1 tablet daily As needed for nausea, Notes to Pharmacist: Stopping Strattera due to continued nausea and replacing with viloxazine to see if better toleratedTaking buPROPion HCl ER (XL) 150 MG Tablet Extended Release 24 Hour 1 tablet in the morning (please take with 300 mg tablet) Orally Once a day , Notes to Pharmacist: Client to continuous pickling line pickler on Thursday when has MAT appt.Taking buPROPion HCl ER (XL) 300 MG Tablet Extended Release 24 Hour 1 tablet in the morning (please take with 150 mg tablet) Orally Once a day , Notes to Pharmacist: Client to continuous pickling line pickler on Thursday when has MAT appt.Taking Citalopram Hydrobromide 40 mg Tablet 1 tablet once a day , Notes to Pharmacist: Client to continuous pickling line pickler on Thursday when has MAT appt.Taking hydrOXYzine HCl 10 MG Tablet 1 - 2 tablets as needed for anxiety Orally Twice a day , Notes to Pharmacist: Client to continuous pickling line pickler on Thursday when has MAT appt.Medication List reviewed and reconciled with the patient * Allergies:?N.K.D.A.no[Allerg ies Verified] Objective: * Vitals:?Initials: rt, Wt:183 .6, Ht: 69, BMI:27.11, BP:118/68, HR:70, Oxygen sat %:97, Temp:98.3, RR:16, Pain scale:4. * Examination: ???General Examination: ?GENERAL APPEARANCE:?appointment via Zoom.?PSYCH:?speech clear, alert, oriented x4, thought process logical, goal directed.? Assessment: * Assessment: 1.?Overweight (BMI 25.0-29.9 ) - E66.3???2.?Opioid use disorder - F11.99 (Primary)???3.?Tobacco use disorder - F17.200??? Plan: * Treatment: ? Value Reference Range ?THC neg * ?MANISH neg * ?MOP (OPI) neg * ?AMP neg * ?MET neg * ?BAR neg * ?BZO neg * ?MDMA neg * ?MTD neg * ?OXY neg * ?PCP neg * ?BUP POS 2.?Others? Notes: Discussed medication side effects, adverse effects, risks, benefits, as well as interactions. Encouraged non-use of opioids. Has naloxone. Recommended participation in recovery groups/counseling services. May contact office with questions or concerns?? * Recommended Wellness and Pre vention Guidelines: * ?Status ?Alert ?Last Done ?Next Due ?Action Taken ?NONCOMPLIANT ?Colorectal cancer screening ?- ? ?- ?NONCOMPLIANT ?Influenza vaccine (high risk) ?- ?1 01/12/2024 ?- * Procedure Codes:?3008F BODY MASS INDEX [id number] Flu Vaccine [id number] MEDICAL NUTRITION, INDIV, [id number] BEHAV CHNG SMOKING 3-10 MIN * Preventive Medicine:? ??Counseling:?Care goal follow-up plan:?BMI management provided?Yes ?Above Normal BMI Follow-up?Lifestyle education regarding diet ?SMOKING:?Patient counselled on the dangers of tobacco use and urged to quit.?. 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 Do Not Use CSSRS Interpretation and Follow Up Plan CSSRS Interpretation and Follow Up Plan CSSRS Screen documented using SF: Yes Moderate or High risk requir es selection of a follow up plan: CSSRS No/Low: intervention not needed at this time MAR follow-up Medication Monitorin g and Risk Mitigation Up-to-date on ASAM recommended lab testing?: No Prescribed a buprenorphine product?: Yes ?Has patient had a buprenorp ramona and metabolite lab ordered/collected?: Yes (see notes for date of last metabolite testing) ??Date of last buprenorphine and metabol ite: 10/17/2024 Prescription Drug Monitoring Program Rev iew: Yes. No concerns at this time. Plan to address any concerns identified:: No concerns identified. Will continue treatment plan as is. Cravings, Setbacks, Substanc e use, and Stressors Cravings since last visit:: No. Patient denies cravings since last visit. Setbacks since last visit?: No, patient denies setbacks since last visit. Misuse of substances since last visit:: No, patient denies. Stressors: No, patient denies stressors at this time. Withdrawal and Intoxication Symptoms Int oxication Symptoms:: No signs of intoxication are present during visit. Withdrawal Symptoms:: No withdrawal sign s are present during visit. Mental Health, Support Syste m, and Social Determinants Mental Health Status: Stable. Support Systems Include:: Personal suppo rt system (see notes). Court System Involvement?: No Housing Stability:: Stable and safe hous ing. 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 Referrals needed:: No referrals needed a t this time. Recommended Wellness and Pre vention Follow-up Recommended Wellness and Prevention reviewed:: Yes. No additional orders/actions needed at this time. Other concerns: Other Concerns?: No. Narcan need: No. Patient already has Seven can. Preventative Health and Wellness follow-up Action Plans for Clinical Quality Measures: Colorectal Cancer Screening:: Discussed need for colorectal cancer screening. Patient declined. Examination Category Sub-Category Detail Notes Category Not es General Examination GENERAL APPEARANCE: appointment vi a Zoom PSYCH: speech clear, alert, oriented x4, thought process logical, goal directed
--- OUTSIDE RECORDS SUMMARY | 2024-12-26 07:17 | XMS_ITS | Referral Summary ---
Author Organization [facility] Address [address] [place] [address] Care Team Providers Care Dinkey Engineer Name Role Phone Saritha Ji NP Primary Care Provider Allergies Active Allergy Reactions Criticality Noted Date Comments Escitalopram Anaphylaxis High 08/11/2022 Venom-Honey Bee Anaphylaxis High 06/12/2020 Medications HYDROcodone-yaritza taminophen (NORCO) 5-325 mg per tabletIndicatio ns:Pain Take 1 tablet by mouth every 6 (six) hours as needed for pain 12 tablet 08/11/2022 Active buprenorphine-n aloxone (SUBOXONE) 8-2 mg per film TAKE 1 FILM IN THE MORNING AND 1/2 FILM AT 4PM 07/15/2022 Active venlafaxine (EFFEXOR) 50 mg tablet Take 50 mg by mouth nightly Active HYDROcodone-yaritza taminophen (NORCO) 5-325 mg per tabletIndicatio ns:Pain Take 1-2 tablets by mouth every 6 (six) hours as needed for pain 50 tablet 08/21/2022 Active acetaminophen (TYLENOL) 500 mg tablet Take 500 mg by mouth every 6 (six) hours as needed for pain Active HYDROcodone-yaritza taminophen (NORCO) 5-325 mg per tabletIndicatio ns:Pain Take 1-2 tablets by mouth every 6 (six) hours as needed for pain 40 tablet 08/21/2022 Active Active Problems Problem Noted Date Diagnosed Date Closed displaced fracture of base of fifth metacarpal bone of right hand 08/15/2022 Closed displaced fracture of neck of right fifth metacarpal bone 08/15/2022 Overview (08/15/2022): Added automatically from request for surgery [id number] Social History Tobacco Use Types Packs/Day Years Used Date Smoking Tobacco: Every Day Cigarettes 0.5 15 Smokeless Tobacco: Current Tobacco Cessation:Ready to Q uit: Not Asked; Counseling Given: Not Answered AUDIT-C Answer Date Recorded Q1: How often do you have a drink containing alc ohol? 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 Gender Identity Not on file Sexual Orientation Not on file Last Filed Vital Signs Vital Sign Reading Time Taken Comments Blood Pressure 136/91 08/30/2022 3:00 PM CDT Pulse 78 08/30/2022 3:00 PM CDT Temperature 36.3 ??C (97.3 ??F) 08/30/2022 3:00 PM CD T Respiratory Rate 14 08/30/2022 3:00 PM CDT Oxygen Saturation 100% 08/30/2022 3:00 PM CDT Inhaled Oxygen Concentration - - Weight 77.1 kg (170 lb) 08/30/2022 3:00 PM CDT Height 175.3 cm (5' 9 ) 08/30/2022 3:00 PM CDT Body Mass Index 25.1 08/30/2022 3:00 PM CDT Plan of Treatment Not on file Medical Devices Implanted Type Area Scaffold Builder Device Identifier Shelf Expiration Date Model / Serial / Lot [employer] Screw Bone Threaded Locking 2.0x14mm Ti [id number] - [id number] Implanted:Qty: 1 on 08/21/2022 by Jose Jewlel MD at [facility] Right: Hand [employer] [id number] 4 / / [employer] Screw Bone Threaded Locking 2.0x8mm Ti [id number] - [id number] Implanted:Qty: 1 on 08/21/2022 by Jose Jewell MD at [facility] Right: Hand [employer] [id number] 8 / / [employer] Screw Bone Threaded Locking 2.0x10mm Ti [id number] - [id number] Implanted:Qty: 1 on 08/21/2022 by Jose Jewell MD at [facility] Right: Hand [employer] [id number]-3 0 / / [employer] Screw Bone Threaded Locking 2.0x11mm Ti [id number] - [id number] Implanted:Qty: 1 on 08/21/2022 by Jose Jewell MD at [facility] Right: Hand [employer] [id number] 1 / / [employer] Plate Bone T Style Rotation Correction 5 Hole Small Bone 2.0mm Ti [id number] - [id number] Implanted:Qty: 1 on 08/21/2022 by Jose Jewell MD at [facility] [employer] AR-[id number] P-4 8 / / [employer] Screw Bone Cortical Threaded 2.0x12mm Ti [id number] - [id number] Implanted:Qty: 2 on 08/21/2022 at [facility] [employer] [id number] -[id number] / / [employer] Screw Bone Threaded Locking 2.0x13mm Ti [id number]-13 - [id number] Implanted:Qty: 1 on 08/21/2022 at [facility] [employer] [id number] V-1 3 / / Explanted Type Area Scaffold Builder Device Identifier Shelf Expiration Date Model / Serial / Lot [employer] Screw Bone Cortical Threaded 2.0x13mm Ti Ar-[id number] - [id number] Explanted:Qty: 1 on 08/21/2022 at [facility] Right: Hand [employer] [id number] / / [employer] Screw Bone Threaded Locking 2.0x13mm Ti [id number] - [id number] Explanted:Qty: 1 on 08/21/2022 at [facility] [employer] [id number] V-1 3 / / Procedures Procedure Name Priority Date/Time Associated Diagnosis Comments HEPATITIS C ANTIBODY Routine 02/13/2023 11:36 AM CDT from Last 3 Months or Most Recently Relevant to Health Maintenance Results * (ABNORMAL) Hepatitis C antibody (02/13/2023 11:36 AM CDT) Hep C Ab Reactive( A) Nonreactive JOAQUINA LEIGH Comment: Interpretive Data Nonreactive: Antibodies to HCV not detected. Does NOT exclude the possibility of recent exposure to HCV. Equivocal: Equivocal for HCV antibodies. Supplemental molecular testing will be automatically performed to determine infection status in accordance with current CDC screening recommendations. ?? Reactive: Positive for HCV antibodies. ??This may represent current or past HCV infection. Supplemental molecular testing will be automatically performed to determine ??current infection status in accordance with current CDC screening recommendations. Interpretive data was last revised on 2020. Blood 02/13/2023 11:3 6 AM CDT 02/13/2023 11:44 AM CDT Lory Cano NP LAB MICROBIOLOGY - GENERAL OR DERABLES Final Result [facility]INA [address] [facility] Department of Laboratories [place], [place] [phone] from Last 3 Months or Most Recently Relevant to Health Maintenance Insurance [facility] Care Teams Dinkey Engineer Relationship Specialty Start Date End Date Saritha Ji NP [address] [place] [address] PCP - General Internal Medicine 10/07/22
--- OUTSIDE RECORDS SUMMARY | 2024-12-26 07:17 | XMS_ITS | Clinical Summary ---
Author Organization [facility] Office Center Address [address] [place] [address] Care Team Providers Care Manager Completions Name Role Phone Saritha Ji NP Primary [...] (08/15/2022): Added automatically from request for surgery [id number] Surgical History Surgery Date Site/Laterality Comments WISDOM TOOTH EXTRACTION ORIF METACARPAL FRACTURE 08/21/2022 Right RT. 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 Gender Identity Not on file Sexual Orientation Not on file Obstetrics History Last Filed Vital Signs Vital Sign Reading [...] 08/30/2022 3:00 PM CDT Plan of Treatment Health Maintenance Due Date Last Done Comments Colon Cancer Screening-Colonoscopy 1979 Depression Screening 1979 Pneumococcal vaccine <65 (1 of 2 - PCV) 1985 DTaP/Tdap/Td Vaccine (1 - Tdap) 1990 Hepatitis B Screening 1997 Regular Well Visit/Exam 18-64 1997 Influenza Vaccine (#1) 2024 Hepatitis C Screening Completed 02/13/2023 HPV Vaccines Aged Out No longer eligi ble based on patient's age to complete this topic Medical Devices Implanted Type Area Acid Tank Cleaner Device Identifier Shelf Expiration Date Model / Serial / Lot [employer] Screw Bone Threaded Locking 2.0x14mm Ti [id number] - [id number] Implanted:Qty: 1 on 08/21/2022 by Jose Jewell MD at [facility] Right: Hand [employer] [id number] 4 / / [employer] Screw Bone Threaded Locking 2.0x8mm Ti [id number] - [id number] Implanted:Qty: 1 on 08/21/2022 by Jose Jewell MD at [facility] Right: Hand [employer] AR-[id number]-0 8 / / [employer] Screw Bone Threaded Locking 2.0x10mm Ti [id number] - [id number] Implanted:Qty: 1 on 08/21/2022 by Jose Jewell MD at [facility] Right: Hand [employer] AR-[id number]-6 0 / / [employer] Screw Bone Threaded Locking 2.0x11mm Ti [id number] - [id number] Implanted:Qty: 1 on 08/21/2022 by Jose Jewell MD at [facility] Right: Hand [employer] AR-[id number]-6 1 / / [employer] Plate Bone T Style Rotation Correction 5 Hole Small Bone 2.0mm Ti [id number]-20 - [id number] Implanted:Qty: 1 on 08/21/2022 by Jose Jewell MD at [facility] [employer] AR-[id number] P-4 8 / / [employer] Screw Bone Cortical Threaded 2.0x12mm Ti [id number] - [id number] Implanted:Qty: 2 on 08/21/2022 at [facility] [employer] AR-[id number] -12 / / [employer] Screw Bone Threaded Locking 2.0x13mm Ti [id number] - [id number] Implanted:Qty: 1 on 08/21/2022 at [facility] [employer] AR-[id number] V-1 3 / / Explanted Type Area Acid Tank Cleaner Device Identifier Shelf Expiration Date Model / Serial / Lot [employer] Screw Bone Cortical Threaded 2.0x13mm Ti Ar-[id number] - [id number] Explanted:Qty: 1 on 08/21/2022 at [facility] Right: Hand [employer] AR-[id number] / / [employer] Screw Bone Threaded Locking 2.0x13mm Ti [id number] - [id number] Explanted:Qty: 1 on 08/21/2022 at [facility] [employer] AR-[id number] V-1 3 / / Procedures Procedure Name [...] 6 AM CDT 02/13/2023 11:44 AM CDT us Lory Cano NP LAB MICROBIOLOGY - GENERAL OR DERABLES Final Result [address] [facility] Department [place] [address] from Last 3 Months or Most Recently Relevant to Health Maintenance Insurance [facility] Care Teams Manager Completions Relationship Specialty Start Date End Date Saritha Ji NP [address] [place] [address] PCP - General Internal Medicine 10/07/22
--- OUTSIDE RECORDS SUMMARY | 2024-12-26 07:18 | XMS_ITS ---
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 Active Immunizations Vaccine Route Administration Date Status Comme nts Influenza, virus vaccine, trivalent, preservative free IM Intramuscular 12/12/2024 Administered Joe RODRIGUEZ, Lynsey Marilyn 12/12/2024 08:30:53 AM CARBON PAPER COATING MACHINE SETTER >Pt tolerated well. 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 Stress is when someone feels tense, nervous, anxious, or can\t sleep at night because their mind is troubled A little bit In the past year have you sp ent more than 2 nights in a row in a detention, residential, group home center, or juvenile correctional facility? No Are [...] cigarettes a day do you smoke? 6-10 Vital Signs Weight 182.2 lbs 12/12/2024 Height 69 in 12/12/2024 BMI 26.9 kg/m2 12/12/2024 Blood pressure systolic 122 mm Hg 12/12/19 25 Blood pressure diastolic 82 mm Hg 025 Heart Rate 79 /min 12/12/2024 Oximetry 98 % 12/12/2024 Respiratory Rate 16 /min 12/12/2024 Encounters Encounter Location Date Provider Diagnosis [address] [place] [address] 12/12/2024 Carmen Lopez Opioid use disorder F11.99 and Encounter for immunization Z23 Assessments Encounter Date Diagnosis (ICD Code) Assessment Notes Treatment Notes Treatment Clinical Notes Section Notes 12/12/2024 Opioid use disorder (ICD-10 - F11.99) 12/12/2024 Encounter for immunization (ICD-10 - Z23) Ordered per standing orders for administering influenza vaccine to adults. 12/12/2024 Other Patient agrees to take medication [...] with questions or concerns. Plan Of Treatment Medication Medication Name Sig Start Date Stop Date Notes Buprenorphine HCl-Naloxone H Cl 8-2 MG 1 tablet under the tongue and allow to dissolve Sublingual Twice a day 12/12/2024 Treatment Notes Assessment Notes Other Patient agrees to take medication as [...] services. Contact office with questions or concerns. 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 ???Influenza Immunization:?Influenza Immunization Screening Questionnaire?Has fever or is ill??No .,?Has had influenza immunization in past??Yes ..,?Had serious reaction to influenza immunization in past?No ..,?Had reaction to eggs or egg products??No ..,?Had Guillain-Hawthorne Syndrome (GBS)??No ..,?Has an allergy to Thimerosal or mercury products??No ..,?Result of clinical decision regarding administering immunization?Based on questionnaire answers, can administer immunization ..,?Verbal Consent given:?Patient provided verbal consent. ...?Recipient Category?Is the patient a [employer] employee? No .,?Vaccine recipient is an established [employer] patient??Yes,?Was The Patient Educated On This Vaccine??Yes.?Screening:?[place] Suicide Severity Rating Scale (LF)?Do you want to initiate with?Screener form,?1. Wish to be : Have you wished you were or wished you could go to sleep and not wake up??No,?2. Suicidal Thoughts: Have you actually had any thoughts of killing yourself??No,?6. Suicide Behaviour: Have you ever done anything,started to do anything, or prepared to end your life??No,?Interpretation:?Low Risk.?MAR follow-up:?MAR walk-in, 4 week f/u Doing well with current dose of buprenoprhine. Considering to start tapering dose or switch to injection in next few months. Prefers tablets to films. Believes he developed dental issues from films. Sees dentist. Denies cravings or setbacks No other concerns. ?Medication Monitoring and Risk Mitigation?Up-to-date on [facility] recommended lab testing??No,?Prescribed a buprenorphine product??Yes,?Has patient had a buprenorphine and metabolite lab ordered/collected??Yes (see notes for date of last metabolite testing),?Date of last buprenorphine and metabolite?10/17/2024,?Prescription Drug Monitoring Program Review?Yes. No concerns at this time.,?Plan to address any concerns identified:?No concerns identified. Will continue treatment plan as is..?Cravings, Setbacks, Substance use, and Stressors?Cravings since last visit:?No. Patient denies cravings since last visit.,?Setbacks since last visit??No, patient denies setbacks since last visit.,?Misuse of substances since last visit:?No, patient denies.,?Stressors?No, patient denies stressors at this time..?Withdrawal and Intoxication Symptoms?Intoxication Symptoms:?No signs of intoxication are present during visit.,?Withdrawal Symptoms:?No withdrawal signs are present during visit..?Mental Health, Support System, and Social Determinants?Mental Health Status?Stable.,?Support Systems Include:?Personal support system (see notes).,?Court System Involvement??No,?Housing Stability:?Stable and safe housing.,?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 No additional orders/actions needed at this time..?Other concerns:?Other Concerns??No.,?Narcan need?No. Patient already has Narcan..? * ROS:?Basic ROS:?Denies?Chills.?Denies?Sweats.?Denies?Constipation.?Denies?Suicidal Thoughts.? * Medical History:? * Surgical History:?Right hand repair * Hospitalization/Major Diagno stic Procedure:?Denies Past Hospitalization * Family History:?Father: amilcar mccormick, Healthy.?Mother: alive, Healthy.?1 sister(s) - healthy. 1 daughter(s) - healthy. .? 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 Check all that apply?I do not have problems meeting my needs,?Has lack of transportation kept you from medical appointments, meetings, work or from getting things needed for daily living??No,?How often do you see or talk to people that you care about and feel close to? (For example: talking to friends on the phone, visiting friends or family, going to hinduism or club meetings)?More than 5 times a week,?How stressed are you? Stress is when someone feels tense, nervous, anxious, or can\t sleep at night because their mind is troubled?A little bit,?In the past year have you spent more than 2 nights in a row in a detention, residential, group home center, or juvenile correctional facility??No,?Are you a refugee??No,?What country are you from??[place],?Do you feel physically and emotionally safe where you currently live??Yes,?In the past year, have you been afraid of your partner or ex-partner??No,?PRAPARE Score:?4.?Tobacco Use:?Tobacco Control (Standard)?Tobacco use:?Current smoker,?How often do you smoke cigarettes??Every day,?How many cigarettes a day do you smoke??6-10.?Drugs/Alcohol:?Drugs?Have you used drugs other than those for medical reasons in the past 12 months??No.?Alcohol Screen (Audit-C)?Did you have a drink containing alcohol in the past year??No.?Miscellaneous:?Domestic violence: No. Method of learning?Preferred method of learning:?Reading,Discussion.? 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] day , Notes to Pharmacist: 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 and shovel man on Thursday when has MAT appt.Taking buPROPion HCl ER (XL) 300 MG Tablet Extended Release 24 Hour 1 tablet in the morning (please take with 150 mg tablet) Orally Once a day , Notes to Pharmacist: 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 * Examination: ???ASAM Physical Assessment: ?Intoxication and Withdrawal signs?.?General Examination: ?GENERAL APPEARANCE:?alert, pleasant, in no acute distress.?PSYCH:?alert, oriented x4, speech clear, good eye contact, thought process logical, goal directed.? Assessment: * Assessment: 1.?Encounter for immunizatio n - Z23???2.?Opioid use disorder - F11.99 (Primary)??? Plan: * Treatment: ? Value Reference Range ?THC neg * ?MANISH neg * ?MOP (OPI) neg * ?AMP neg * ?MET neg * ?BAR neg * ?BZO neg * ?MDMA neg * ?MTD neg * ?OXY neg * ?PCP neg * ?BUP POS 2.?Encounter for immunization? Clinical Notes: Ordered per standing orders for administering influenza vaccine to adults.? 3.?Others? Notes:Patient agrees to take medication as prescribed. Discussedmedication side effects, adverse effects,risks, benefits, as well asinteractions. Encouraged non-use of opioids and other illicit substances. Hasnaloxone. Discontinuing buprenorphine increases the risk of overdose uponreturn to illicit opioid use. Use of alcohol or benzodiazepines withbuprenorphine increases the risk of overdose anddeath. Education providedabout safe storage of medications. Encouragedparticipation in recovery groups/counseling services. Contact office withquestions or concerns. ?? * Recommended Wellness and Pre vention Guidelines: * ?Status ?Alert ?Last Done ?Next Due ?Action Taken ?NONCOMPLIANT ?Colorectal cancer screening ?- ? ?- ?NONCOMPLIANT ?HIV screening ?- ?12/12/2024 ?- * Immunizations:? Influenza, virus vaccine, trivalent, preservative free : 0.5 mL (Dose No:1) (Route: Intramuscular) given by Lynsey Diaz RN , snp on Right Deltoid (Opioid use disorder) * Procedure Codes:?CHS07 Flu V accine [id number] BODY MASS INDEX [id number] MEDICAL NUTRITION, INDIV, [id number] BEHAV CHNG SMOKING 3-10 [id number] IIV3 VACC NO PRSV 0.5 ML IM * Preventive Medicine:? ??Counseling:?Care goal follow-up plan:?BMI management provided?Yes,?Above Normal BMI Follow-up?Lifestyle education regarding diet.?SMOKING:?Patient counselled on the dangers of tobacco use and urged to quit.?..? 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 Has had influenza immunization in past?: Yes .. Had serious reaction to influenza immuni zation in past: No .. Had reaction to eggs or egg products?: N o .. Had Guillain-Hawthorne Syndrome (GBS)?: No . . Has an allergy to Thimerosal or mercury products?: No .. Result of clinical decision regarding administering immunization: Based on questionnaire answers, can administer immunization .. Verbal Consent given:: Patient provided verbal consent. .. Recipient Category Is the patient a [employer] emp loyee?: No . Vaccine recipient is an established [employer] patient?: Yes Was The Patient Educated On This Vaccine ?: Yes Screening [place] Suicide Sev erity Rating Scale (LF) Do [...] end your life?: No ?Interpretation:: Low Risk MAR follow-up Medication Monitorin g and Risk [...] and safe hous ing. 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 Referrals needed:: No referrals needed a t this time. Recommended Wellness and Pre vention Follow-up Recommended Wellness and Prevention reviewed:: Yes. No additional orders/actions needed at this time. Other concerns: Other Concerns?: No. Narcan need: No. Patient already has Seven can. Preventative Health and Wellness follow-up . . CSSRS Interpretation and Follow Up Plan CSSRS Interpretation and Follow Up Plan CSSRS Screen documented using SF: Yes Risk Disposition from SF: Low - No Follo w Up Plan Required Follow Up Plan: Moderate/High: Warm hand off to Behavioral Health Examination Category Sub-Category Detail Notes Category Not es General Examination GENERAL APPEARANCE: alert, p leasant, in no acute distress PSYCH: alert, oriented x4, speech clear, good eye contact, thought process logical, goal directed ASAM Physical Assessment Intoxication an d Withdrawal signs Intoxication signs: No signs of intoxication are present during examination. Withdrawal Signs: No withdrawal signs ar e present during examination.
--- NOTE | 2024-12-26 07:23 | ED_ITS ---
HPI - Dental/Oral General Chief complaint: Dental/Oral Stated complaint: Dental pain, had dental appt for 12/30/24 Time Seen by Provider: 12/26/24 07:19 History of Present Illness HPI Narrative: Patient is a 44-year-old male who presents ER with pain to left lower jaw. Recently had dental implant performed. He started having pain over last couple weeks. No facial swelling. He is supposed to see his dentist on 12/30/2024. Pain with eating. No difficulty swallowing or breathing. Related Data Allergies Allergy/AdvReac Type Severity Reaction Status Date / Time No Known Allergies Allergy Verified 06/11/24 14:32 Review of Systems Constitutional: Constitutional: Reports no additional constitutional complaints ENT: Reports system reviewed and no additional complaints, except as documented PMFSH Past Medical History Medical History (Updated 12/26/24 @ 07:28 by Beny Irwin MD) Healthy adult male Exam Narrative: GENERAL: Well-appearing, well-nourished, and in no acute distress. HEAD: Normocephalic, atraumatic. ENT: Mucous membranes moist. No overt abscess or facial swelling. Mild discomfort at the location of tooth 21 EXTREMITIES: Normal range of motion. NEURO: Alert and oriented x3. PSYCH: Normal mood and affect. Course Course Emergency Course: May have infection from previous procedure or rubbing from partial implant. Follow-up with dentist. Will start on antibiotic. Discharge Plan Discharge Clinical Impression: Toothache Patient Disposition: Home, Self-Care Condition: Stable Instructions: Antibiotic Form, Toothache (ED) Additional Instructions: Return ER if cannot breathe, you cannot swallow, you have additional concerns. Patient Language: Upper Sorbian Prescriptions: New amoxicillin-pot clavulanate 875-125 mg tablet 1 tablet PO Q12H Qty: 14 0RF No Action epinephrine [EpiPen] 0.3 mg/0.3 mL auto-injector 0.3 mg IM ONCE Qty: 2 0RF Rx Instructions: as a single dose; may repeat once prednisone 50 mg tablet 50 mg PO DAILY Qty: 6 0RF Follow-up/Referrals: Paulie,Shane Kaur APRN [Primary Care Provider] -
[2024-12-26 07:25] VITALS: BP 159/59; PULSE 75; RESP 16; TEMP 36.6; O2SAT 100
--- OUTSIDE RECORDS SUMMARY | 2024-12-26 07:43 | XMS_ITS | Clinical Summary ---
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 Gender Identity Not on file Sexual Orientation [...] this topic Medical Devices Implanted Type Area Toll Mechanic Device Identifier Shelf Expiration Date Model / Serial / Lot [employer] Screw Bone Threaded Locking 2.0x14mm Ti Wp-[id number] - [id number] Implanted:Qty: 1 on 08/21/2022 by Jose Jewell MD at [facility] Right: Hand [employer] AR-52381R-3 4 / / [employer] Screw Bone Threaded Locking 2.0x8mm Ti Aa-37953g-25 - [id number] Implanted:Qty: 1 on 08/21/2022 by Jose Jewell MD at [facility] Right: Hand [employer] AR-81603Z-2 8 / / [employer] Screw Bone Threaded Locking 2.0x10mm Ti Pr-18453x-82 - [id number] Implanted:Qty: 1 on 08/21/2022 by Jose Jewell MD at [facility] Right: Hand [employer] AR-67556P-8 0 / / [employer] Screw Bone Threaded Locking 2.0x11mm Ti Di-49391j-47 - [id number] Implanted:Qty: 1 on 08/21/2022 by Jose Jewell MD at [facility] Right: Hand [employer] AR-99890X-8 1 / / [employer] Plate Bone T Style Rotation Correction 5 Hole Small Bone 2.0mm Ti Wy-32704t-82 - [id number] Implanted:Qty: 1 on 08/21/2022 by Jose Jewell MD at [facility] [employer] AR-44757 P-4 8 / / [employer] Screw Bone Cortical Threaded 2.0x12mm Ti Ar-16233-48 - [id number] Implanted:Qty: 2 on 08/21/2022 at [facility] [employer] AR-27117 -12 / / [employer] Screw Bone Threaded Locking 2.0x13mm Ti Tf-36683y-38 - [id number] Implanted:Qty: 1 on 08/21/2022 at [facility] [employer] AR-36969 V-1 3 / / Explanted Type Area Toll Mechanic Device Identifier Shelf Expiration Date Model / Serial / Lot [employer] Screw Bone Cortical Threaded 2.0x13mm Ti Ar-57566-62 - [id number] Explanted:Qty: 1 on 08/21/2022 at [facility] Right: Hand [employer] AR-59515-73 / / [employer] Screw Bone Threaded Locking 2.0x13mm Ti De-39255n-17 - [id number] Explanted:Qty: 1 on 08/21/2022 at [facility] [employer] AR-15749 V-1 3 / / Procedures Procedure Name [...] - GENERAL OR DERABLES Final Result [facility] [address] [facility] Department [place] [address] from Last 3 Months or Most Recently Relevant to Health Maintenance Insurance [facility] Care Teams Mig Welder Relationship Specialty Start Date End Date Saritha Ji NP [address] [place] [address] PCP - General Internal Medicine 10/07/22
--- OUTSIDE RECORDS SUMMARY | 2024-12-26 07:43 | XMS_ITS | Referral Summary ---
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 Gender Identity Not on file Sexual Orientation [...] on file Medical Devices Implanted Type Area Nurse Ortho Device Identifier Shelf Expiration Date Model / Serial / Lot [employer] Screw Bone Threaded Locking 2.0x14mm Ti Pn-[id number]-52 - [id number] Implanted:Qty: 1 on 08/21/2022 by Jose Jewell MD at [facility] Right: Hand [employer] AR-30607N-5 4 / / [employer] Screw Bone Threaded Locking 2.0x8mm Ti Mq-64047p-08 - [id number] Implanted:Qty: 1 on 08/21/2022 by Jose Jewell MD at [facility] Right: Hand [employer] AR-56478V-2 8 / / [employer] Screw Bone Threaded Locking 2.0x10mm Ti Kg-47034p-22 - [id number] Implanted:Qty: 1 on 08/21/2022 by Jose Jewell MD at [facility] Right: Hand [employer] AR-23624U-8 0 / / [employer] Screw Bone Threaded Locking 2.0x11mm Ti Gg-26688h-67 - [id number] Implanted:Qty: 1 on 08/21/2022 by Jose Jewell MD at [facility] Right: Hand [employer] AR-77411B-6 1 / / [employer] Plate Bone T Style Rotation Correction 5 Hole Small Bone 2.0mm Ti Gp-53580z-72 - [id number] Implanted:Qty: 1 on 08/21/2022 by Jose Jewell MD at [facility] [employer] AR-58270 P-4 8 / / [employer] Screw Bone Cortical Threaded 2.0x12mm Ti Ar-35575-97 - [id number] Implanted:Qty: 2 on 08/21/2022 at [facility] [employer] AR-23871 -12 / / [employer] Screw Bone Threaded Locking 2.0x13mm Ti Pr-82994u-60 - [id number] Implanted:Qty: 1 on 08/21/2022 at [facility] [employer] AR-59826 V-1 3 / / Explanted Type Area Nurse Ortho Device Identifier Shelf Expiration Date Model / Serial / Lot [employer] Screw Bone Cortical Threaded 2.0x13mm Ti Ar-99368-34 - [id number] Explanted:Qty: 1 on 08/21/2022 at [facility] Right: Hand [employer] AR-92566-22 / / [employer] Screw Bone Threaded Locking 2.0x13mm Ti Lu-36599v-52 - [id number] Explanted:Qty: 1 on 08/21/2022 at [facility] [employer] AR-90648 V-1 3 / / Procedures Procedure Name [...] - GENERAL OR DERABLES Final Result JO[facility]QUINA [address] [facility] Department of Laboratories [place], [place] [id number] from Last 3 Months or Most Recently Relevant to Health Maintenance Insurance [facility] Care Teams Metal Furniture Panel Coverer Relationship Specialty Start Date End Date Saritha Ji NP [address] [place] [address] PCP - General Internal Medicine 10/07/22
== END 2024-12-26 08:12 | disposition home or self-care (01) ==
LOC: ANHED 07:38
PROVIDERS: Emergency Provider Emergency Medicine; PCP Nurse Practitioner
DX: K08.89 Other specified disorders of teeth and supporting structures (principal); Z98.818 Other dental procedure status
CPT/HCPCS: 99283

== ENCOUNTER 2025-09-20 11:18 | Emergency (ER) | payer OTHER, SELFPAY ==
[2025-09-20] VITALS (8 sets, daily range): BP systolic 122–153; BP diastolic 73–87; PULSE 15–112; RESP 16–81; TEMP 36.6–37.1; O2SAT 93–97
--- NOTE | 2025-09-20 14:03 | ED.ALLEREA ---
HPI - Allergic Reaction General Chief complaint: Allergic Reaction Stated complaint: stung by a wasp, allergic Time Seen by Provider: 09/20/25 12:06 History of Present Illness HPI narrative: Patient is a 45-year-old male who presents to the ER with wasp sting. He was stung at 11:00 a.m.. He is allergic in used his EpiPen. No throat swelling or difficulty breathing or swallowing. Can not hear out of precaution. He has had this happen to him currently. His arm is red and warm. His left arm. Related Data Allergies Allergy/AdvReac Type Severity Reaction Status Date / Time venom-wasp Allergy Hives Verified 09/20/25 11:33 Review of Systems Review of Systems: All systems reviewed & are unremarkable except as noted in HPI and below Constitutional: Constitutional: Reports no additional constitutional complaints ENT: Reports system reviewed and no additional complaints, except as documented Cardiovascular: Cardiovascular: Reports no additional cardiovascular complaints Respiratory: Respiratory: Reports no additional respiratory complaints Musculoskeletal: Musculoskeletal: Reports no additional musculoskeletal complaints Integumentary/Breasts: Skin/Breast: Reports system reviewed and no additional complaints, except as docu PMFSH Past Medical History Medical History (Updated 09/20/25 @ 14:07 by Beny Irwin MD) Healthy adult male Exam Narrative: GENERAL: Well-appearing, well-nourished, and in no acute distress. HEAD: Normocephalic, atraumatic. ENT: Mucous membranes moist. NECK: Supple. CHEST: Clear to auscultation. No respiratory distress. HEART: Regular rate and rhythm. Normal peripheral pulses. EXTREMITIES: Normal range of motion. No edema. SKIN: Warm, dry, no rash. Mild erythema left forearm with slight induration from wasp sting irritation. NEURO: Alert and oriented x3. PSYCH: Normal mood and affect. Course Course Emergency Course: Patient feels well. He will receive prednisone and Benadryl. We will refill his EpiPen and discharge him home. 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 Vital Signs Vital signs: Vital Signs Temperature 97.9 F 09/20/25 11:21 Pulse Rate 105 H 09/20/25 11:21 Respiratory Rate 18 09/20/25 11:21 Blood Pressure 153/73 H 09/20/25 11:21 Pulse Oximetry 97 09/20/25 11:21 Temperature 98.6 F 09/20/25 11:33 Pulse Rate 89 09/20/25 13:56 Respiratory Rate 18 09/20/25 13:56 Blood Pressure 126/78 09/20/25 13:56 Pulse Oximetry 96 09/20/25 13:56 Oxygen Delivery Room Air 09/20/25 11:35 Discharge Plan Discharge Clinical Impression: Allergic reaction, Wasp sting Patient Disposition: Home Condition: Stable Instructions: Insect Bite or Sting (ED), General Allergic Reaction (ED) Additional Instructions: Return ER if he cannot breathe, he cannot swallow, you have additional concerns. Take prednisone for the next 6 days. Received her 1st dose today. You may also take Benadryl for itching. Apply compresses to your forearm. Patient Language: Armenian Prescriptions: New prednisone 50 mg tablet 50 mg PO DAILY Qty: 6 0RF diphenhydramine HCl [Benadryl] 25 mg capsule 25 mg PO TID PRN (Reason: allergic reaction) Qty: 14 0RF epinephrine [EpiPen] 0.3 mg/0.3 mL auto-injector 0.3 mg IM ONCE Qty: 1 0RF Rx Instructions: as a single dose; may repeat once No Action epinephrine [EpiPen] 0.3 mg/0.3 mL auto-injector 0.3 mg IM ONCE Qty: 2 0RF Rx Instructions: as a single dose; may repeat once prednisone 50 mg tablet 50 mg PO DAILY Qty: 6 0RF amoxicillin-pot clavulanate 875-125 mg tablet 1 tablet PO Q12H Qty: 14 0RF Follow-up/Referrals: Petey Roe MD [Physician, Family Practice] - 1 Week PHYSICIAN,TUFT MACHINE OPERATOR [Primary Care Provider, Internal Medicine]
[2025-09-20] MEDS: diphenhydrAMINE HCl CAP 25 MG CAPSULE PO (14:12)
--- OUTSIDE RECORDS SUMMARY | 2025-09-20 14:32 | XMS_ITS | Clinical Summary ---
Author Organization [facility] at [facility] Office Center Address [address] [place] [address] Care Team Providers Care Rivet Tapping Machine Operator Name Role Phone Saritha Ji NP Primary [...] (08/15/2022): Added automatically from request for surgery [id number] Surgical History Surgery Date Site/Laterality Comments WISDOM TOOTH EXTRACTION ORIF METACARPAL FRACTURE 08/21/2022 Right RT. 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 Gender Identity Not on file Sexual Orientation Not on file Obstetrics History Last Filed Vital Signs Vital Sign Reading Time Taken Comments Blood Pressure 136/91 08/30/2022 3:00 PM CDT Pulse 78 08/30/2022 3:00 PM CDT Temperature 36.3 C (97.3 F) 08/30/2022 3:00 PM CDT Respiratory Rate 14 08/30/2022 3:00 PM CDT Oxygen Saturation 100% 08/30/2022 3:00 PM CDT Inhaled Oxygen Concentration - - Weight 77.1 kg (170 lb) 08/30/2022 3:00 PM CDT Height 175.3 cm (5' 9) 08/30/2022 3:00 PM CDT Body Mass Index 25.1 08/30/2022 3:00 PM CDT Plan of Treatment Health Maintenance Due Date Last Done Comments Colon Cancer Screening-Colonoscopy 1979 Depression Screening 1979 DTaP/Tdap/Td Vaccine (1 - Tdap) 1990 Hepatitis B Screening 1997 Regular Well Visit/Exam 18-64 1997 Pneumococcal vaccine <65 (1 of 2 - PCV) 1998 Influenza Vaccine (#1) 2025 Hepatitis C Screening Completed 02/13/2023 HPV Vaccines Aged Out No longer eligi ble based on patient's age to complete this topic Medical Devices Implanted Type Area Photoengraver Device Identifier Shelf Expiration Date Model / Serial / Lot [employer] Screw Bone Threaded Locking 2.0x14mm Ti Xa-[id number]-94 - [id number] Implanted:Qty: 1 on 08/21/2022 by Jose Jewell MD at [facility] Right: Hand [employer] AR-94342L-7 4 / / [employer] Screw Bone Threaded Locking 2.0x8mm Ti Md-13551e-32 - [id number] Implanted:Qty: 1 on 08/21/2022 by Jose Jewell MD at [facility] Right: Hand [employer] AR-60964M-7 8 / / [employer] Screw Bone Threaded Locking 2.0x10mm Ti Dy-59644w-77 - [id number] Implanted:Qty: 1 on 08/21/2022 by Jose Jewell MD at [facility] Right: Hand [employer] AR-51576Y-4 0 / / [employer] Screw Bone Threaded Locking 2.0x11mm Ti Wr-03202i-96 - [id number] Implanted:Qty: 1 on 08/21/2022 by Jose Jewell MD at [facility] Right: Hand [employer] AR-80608V-5 1 / / [employer] Plate Bone T Style Rotation Correction 5 Hole Small Bone 2.0mm Ti Id-52211y-19 - [id number] Implanted:Qty: 1 on 08/21/2022 by Jose Jewell MD at [facility] [employer] AR-67340 P-4 8 / / [employer] Screw Bone Cortical Threaded 2.0x12mm Ti Ar-27383-50 - [id number] Implanted:Qty: 2 on 08/21/2022 at [facility] [employer] AR-07097 -12 / / [employer] Screw Bone Threaded Locking 2.0x13mm Ti Dw-61112r-97 - [id number] Implanted:Qty: 1 on 08/21/2022 at [facility] [employer] AR-62440 V-1 3 / / Explanted Type Area Photoengraver Device Identifier Shelf Expiration Date Model / Serial / Lot [employer] Screw Bone Cortical Threaded 2.0x13mm Ti Ar-01033-03 - [id number] Explanted:Qty: 1 on 08/21/2022 at [facility] Right: Hand [employer] AR-69997-55 / / [employer] Screw Bone Threaded Locking 2.0x13mm Ti Xo-36020n-70 - [id number] Explanted:Qty: 1 on 08/21/2022 at [facility] [employer] AR-74437 V-1 3 / / Procedures Procedure Name [...] in accordance with current CDC screening recommendations. Reactive: Positive for HCV antibodies. This may represent current or past HCV infection. Supplemental molecular testing will be automatically performed to determine current infection status in accordance with current CDC screening recommendations. Interpretive data was last revised on 2020. Blood 02/13/2023 11:3 6 AM CDT 02/13/2023 11:44 AM CDT us Lory Cano NP LAB MICROBIOLOGY - GENERAL OR DERABLES Final Result [facility] [address] [facility] Department [place] [address] from Last 3 Months or Most Recently Relevant to Health Maintenance Insurance [facility] Care Teams Rivet Tapping Machine Operator Relationship Specialty Start Date End Date Saritha Ji NP PCP - General Internal Medicine 10/07/22
== END 2025-09-20 14:26 | disposition home or self-care (01) ==
PROVIDERS: Emergency Provider Emergency Medicine
DX: T78.49XA Other allergy, initial encounter (principal); T63.461A Toxic effect of venom of wasps, accidental (unintentional), initial encounter
CPT/HCPCS: 99283; A9270; J7512